=== PATIENT | female | born 1975 | race Caucasian/White ===

== ENCOUNTER 2017-04-26 05:28 | Emergency (ER) | payer BC, MEDICAID ==
[~2017-04-26] VITALS: Ht 162.6 cm; Wt 81.6 kg
[2017-04-26 05:35] VITALS: BP_SYST 127
[2017-04-26 05:56] LABS: BILIRUBIN,URINE NEGATIVE (NEGATIVE); BLOOD, URINE NEGATIVE (NEGATIVE); CLARITY/URINE SL CLOUDY (CLEAR); COLOR,URINE YELLOW (YELLOW); GLUCOSE,URINE NEGATIVE (NEGATIVE); KETONES,URINE NEGATIVE (NEGATIVE); LEUKOCYTE ESTERASE ,URINE 1+ (NEGATIVE); NITRITE, URINE NEGATIVE (NEGATIVE); PROTEIN URINE NEGATIVE (NEGATIVE); UROBILINOGEN,URINE 0.2 (0.2-1.0)
[2017-04-26 06:00] LABS: BACTERIA,URINE MODERATE /HPF (None Seen); RBC,URINE 0-3 /HPF (0-3)
[2017-04-26] MEDS ORDERED: NACL 0.9% 1,000 ML IV ONE (06:00)
[2017-04-26] MEDS ORDERED: HYDROmorphone 1 MG INJ. 1 MG/ML AMPUL IVP ONE (06:30)
[2017-04-26] MEDS ORDERED: ONDANSETRON HCL 4 MG/2 ML VIAL IVP ONE (06:30)
[2017-04-26 07:17] LABS: BASOPHILS # (AUTO) 0.1 K/uL (0.0-0.2); BASOPHILS % (AUTO) 0.9 % (0.0-2.0); EOSINOPHILS # (AUTO) 0.1 K/uL (0.0-0.4); EOSINOPHILS % (AUTO) 1.9 % (0.0-4.0); HEMATOCRIT 31.8 % (36-48); HEMOGLOBIN 10.6 g/dL (12.0-16.0); LYMPHOCYTES # (AUTO) 1.4 K/uL (1.0-5.5); LYMPHOCYTES % (AUTO) 19.5 % (20.5-51.5); MEAN CORPUSCULAR HEMOGLOBIN 27 pg (27-31); MEAN CORPUSCULAR HGB CONC 33 % (32-36); MEAN CORPUSCULAR VOLUME 82 fL (79.0-98.0); MONOCYTES # (AUTO) 0.3 K/uL (0.0-1.0); MONOCYTES % (AUTO) 4.2 % (1.7-9.3); NEUTROPHILS # (AUTO) 5.1 K/uL (1.8-7.7); NEUTROPHILS % (AUTO) 73.5 % (40.0-70.0); PLATELET COUNT (AUTO) 259 K/uL (130-430); RED BLOOD CELL COUNT(AUTO) 3.89 MIL/uL (4.2-6.2); RED CELL DISTRIBUTION WIDTH 13.6 % (9.0-15.0)
[2017-04-26 07:29] LABS: CALCIUM 8.4 mg/dL (8.4-11.0)
[2017-04-26 07:30] LABS: CREATININE 0.74 mg/dL (0.55-1.30)
[2017-04-26 07:37] LABS: ALBUMIN 3.2 g/dL (3.4-4.8); TOTAL BILIRUBIN 0.2 mg/dL (0.0-1.0)
[2017-04-26] MEDS ORDERED: PIPERACILLIN/TAZOBACTAM 3.375 GM/VIAL (ZOSYN) IV ONE (08:08)
[2017-04-26] MEDS ORDERED: PIPERACILLIN/TAZO 3.375 GM in NS 50 ML IV ONE (08:15)
[2017-04-26] MEDS ORDERED: MAGNESIUM CITRATE 300 ML ORAL SOLUTION PO ONE (09:30)
[2017-04-26 09:46] VITALS: BP_SYST 128
== END 2017-04-26 09:46 | disposition home or self-care (01) ==
LOC: SED 05:28
DX: K52.9 Noninfective gastroenteritis and colitis, unspecified (principal); Z87.442 Personal history of urinary calculi; Z88.5 Allergy status to narcotic agent
CPT/HCPCS: 36415; 74176; 80053; 81000; 81025; 83690; 85025; 87086; 96361; 96365; 96375; 99285; J1170; J2405; J2543; J7030

== ENCOUNTER 2023-04-12 12:18 | Inpatient (IN) | payer MEDICAID, OTHER ==
[~2023-04-12] VITALS: Ht 162.6 cm; Wt 78.0 kg
[2023-04-12] MEDS ORDERED: LEVO5TAB2 PO (12:40)
[2023-04-12 12:41] VITALS: BP_SYST 108; PULSE 76; RESP 20; TEMP 98.8; O2SAT 100
[2023-04-12] MEDS ORDERED: fentaNYL CITRATE/PF 100 MCG/2 ML AMP IVP ONE ×2 (13:15→17:15)
[2023-04-12] MEDS ORDERED: ONDANSETRON HCL 4 MG/2 ML VIAL IVP ONE (13:15)
[2023-04-12 13:16] LABS: BILIRUBIN,URINE NEGATIVE (NEGATIVE); BLOOD, URINE NEGATIVE (NEGATIVE); CLARITY/URINE CLEAR (CLEAR); COLOR,URINE YELLOW (YELLOW); GLUCOSE,URINE NEGATIVE (NEGATIVE); KETONES,URINE NEGATIVE (NEGATIVE); LEUKOCYTE ESTERASE ,URINE NEGATIVE (NEGATIVE); NITRITE, URINE NEGATIVE (NEGATIVE); PROTEIN URINE NEGATIVE (NEGATIVE); UROBILINOGEN,URINE 0.2 (0.2-1.0)
[2023-04-12 13:31] LABS: BASOPHILS # (AUTO) 0.1 K/uL (0.0-0.2); BASOPHILS % (AUTO) 0.8 % (0.0-2.0); EOSINOPHILS # (AUTO) 0.1 K/uL (0.0-0.4); EOSINOPHILS % (AUTO) 1.5 % (0.0-4.0); HEMATOCRIT 35.8 % (36-48); HEMOGLOBIN 11.6 g/dL (12.0-16.0); LYMPHOCYTES # (AUTO) 1.4 K/uL (1.0-5.5); LYMPHOCYTES % (AUTO) 18.6 % (20.5-51.5); MEAN CORPUSCULAR HEMOGLOBIN 27 pg (27-31); MEAN CORPUSCULAR HGB CONC 32 % (32-36); MEAN CORPUSCULAR VOLUME 84 fL (79.0-98.0); MONOCYTES # (AUTO) 0.6 K/uL (0.0-1.0); MONOCYTES % (AUTO) 7.7 % (1.7-9.3); NEUTROPHILS # (AUTO) 5.3 K/uL (1.8-7.7); NEUTROPHILS % (AUTO) 71.4 % (40.0-70.0); PLATELET COUNT (AUTO) 331 K/uL (130-430); RED BLOOD CELL COUNT(AUTO) 4.26 MIL/uL (4.2-6.2); RED CELL DISTRIBUTION WIDTH 14.3 % (9.0-15.0); WHITE BLOOD COUNT (AUTO) 7.5 K/uL (4.8-10.8)
[2023-04-12 13:50] LABS: CREATININE 0.63 mg/dL (0.55-1.30); POTASSIUM 3.6 mmol/L (3.5-5.1)
[2023-04-12 14:06] LABS: ALBUMIN 3.3 g/dL (3.4-4.8); TOTAL BILIRUBIN 0.5 mg/dL (0.0-1.0); TOTAL PROTEIN, SERUM 7.3 g/dL (6.4-8.3)
[2023-04-12] MEDS ORDERED: PIPERACILLIN/TAZO 4.5 GM in NS 100 ML IV ONE (18:00)
[2023-04-12] MEDS ORDERED: PIPERACILLIN/TAZOBACTAM 4.5 GM/VIAL (ZOSYN) IV ONE (18:03)
[2023-04-12] MEDS ORDERED: LR 500 ML IV ONE (19:15)
[2023-04-12] MEDS ORDERED: KETOROLAC TROMETHAMINE 30 MG VIAL IVP ONE (19:15)
[2023-04-12] MEDS ORDERED: LR 1,000 ML IV ONE (20:45)
[2023-04-12] MEDS ORDERED: ONDANSETRON HCL 4 MG/2 ML VIAL IVP PRN (20:45)
[2023-04-12 22:02] VITALS: BP_SYST 111; PULSE 63; RESP 18; TEMP 97.6; O2SAT 97
[2023-04-13] VITALS: BP_SYST 103; PULSE 77; RESP 18; TEMP 99.2; O2SAT 100
[2023-04-13 00:02] VITALS: BP_SYST 107; PULSE 61; RESP 18; TEMP 97.4; O2SAT 98
[2023-04-13] MEDS ORDERED: PIPERACILLIN/TAZOBACTAM 4.5 GM/VIAL (ZOSYN) IV ONE (00:39)
[2023-04-13] MEDS ORDERED: PIPERACILLIN/TAZO 4.5 GM in NS 100 ML IV SCH (02:00)
[2023-04-13] MEDS: KETOROLAC TROMETHAMINE 15 MG VIAL IVP PRN ×2 (06:29→11:55)
[2023-04-13 08:00] VITALS: BP_SYST 97; PULSE 67; RESP 18; TEMP 97.8; O2SAT 99
[2023-04-13] MEDS: PIPERACILLIN/TAZO 4.5 GM in NS 100 ML IV SCH ×2 (11:59→21:38)
[2023-04-13 12:00] VITALS: BP_SYST 96; PULSE 65; RESP 18; TEMP 97.6; O2SAT 99
[2023-04-13] MEDS ORDERED: LR 1,000 ML IV SCH (12:00)
[2023-04-13 13:17] LABS: INR 1.2 (0.8-1.2); PROTHROMBIN TIME 11.9 SECS (9.5-12.5)
[2023-04-13 13:33] LABS: SERUM HCG (QUALITATIVE) NEGATIVE (NEGATIVE)
[2023-04-13 16:00] VITALS: BP_SYST 100; PULSE 66; RESP 19; TEMP 97.2; O2SAT 99
[2023-04-13 20:00] VITALS: BP_SYST 104; PULSE 72; RESP 18; TEMP 98.2; O2SAT 100
[2023-04-14] MEDS: PIPERACILLIN/TAZO 4.5 GM in NS 100 ML IV SCH (05:40)
[2023-04-14 08:21] VITALS: BP_SYST 96; PULSE 64; RESP 18; TEMP 98.6; O2SAT 96
[2023-04-14 10:54] VITALS: O2SAT 99
[2023-04-14 11:05] LABS: BASOPHILS % (AUTO) 0.7 % (0.0-2.0); EOSINOPHILS # (AUTO) 0.1 K/uL (0.0-0.4); EOSINOPHILS % (AUTO) 1.9 % (0.0-4.0); HEMATOCRIT 31.9 % (36-48); HEMOGLOBIN 10.4 g/dL (12.0-16.0); LYMPHOCYTES # (AUTO) 1.8 K/uL (1.0-5.5); LYMPHOCYTES % (AUTO) 25.5 % (20.5-51.5); MEAN CORPUSCULAR HEMOGLOBIN 27 pg (27-31); MEAN CORPUSCULAR HGB CONC 33 % (32-36); MEAN CORPUSCULAR VOLUME 84 fL (79.0-98.0); MONOCYTES # (AUTO) 0.6 K/uL (0.0-1.0); MONOCYTES % (AUTO) 8.4 % (1.7-9.3); NEUTROPHILS # (AUTO) 4.4 K/uL (1.8-7.7); NEUTROPHILS % (AUTO) 63.5 % (40.0-70.0); PLATELET COUNT (AUTO) 324 K/uL (130-430); RED BLOOD CELL COUNT(AUTO) 3.82 MIL/uL (4.2-6.2)
[2023-04-14 11:21] LABS: CALCIUM 8.7 mg/dL (8.4-11.0); CREATININE 0.81 mg/dL (0.55-1.30); POTASSIUM 3.5 mmol/L (3.5-5.1)
[2023-04-14 12:55] VITALS: BP_SYST 100; PULSE 77; RESP 18; TEMP 98.1; O2SAT 96
[2023-04-14 13:00] VITALS: BP_SYST 100; PULSE 77; RESP 18; TEMP 98.1; O2SAT 96
[2023-04-14 13:04] VITALS: BP_SYST 100; PULSE 77; RESP 18; TEMP 98.1; O2SAT 96
== END 2023-04-14 13:30 | disposition home or self-care (01) | DRG 372 ==
LOC: SED 12:18 → SMU 20:35
PROVIDERS: ADMIT Family Medicine; ATTEND Family Medicine
DX: K35.32 Acute appendicitis with perforation, localized peritonitis, and gangrene, without abscess (principal); E44.1 Mild protein-calorie malnutrition; R18.8 Other ascites; C80.1 Malignant (primary) neoplasm, unspecified; K76.9 Liver disease, unspecified; Z88.6 Allergy status to analgesic agent; Z87.442 Personal history of urinary calculi; Z79.899 Other long term (current) drug therapy; Z80.0 Family history of malignant neoplasm of digestive organs; Z68.29 Body mass index [BMI] 29.0-29.9, adult; E78.5 Hyperlipidemia, unspecified
CPT/HCPCS: 36415; 76376; 76856-TC; 80048; 80053; 81003; 83605; 83690; 84703; 85025; 85610-TC; 85730-TC; 96361; 96365; 96375; 96376; 99285; J1885; J2405; J2543; J3010